=== PATIENT | male | born 1985 | race Two or more races ===

== ENCOUNTER 2024-11-15 00:42 | Inpatient (IN) | payer OTHER ==
[~2024-11-15] VITALS: Ht 170.2 cm; Wt 104.3 kg
[2024-11-15] VITALS (9 sets, daily range): BP systolic 114–139; BP diastolic 68–95; PULSE 60–81; RESP 14–20; TEMP 97.6–98.1; O2SAT 92–100
--- NOTE | 2024-11-15 00:50 | ED.PDOC ---
HPI Comments 39-year-old male presents to ED chief complaint chest pain. Patient notes substernal chest pain with radiation into his left arm describes a sharp shooting and pressure type pain across left and right chest into left arm rates pain 5-6/10. Patient reports no other related symptoms. Notes he was driving his vehicle when pain started. He was so reports history of hypertension however does not take any medications. Blood pressure in triage was 171/122. Patient also states he had this pain in the past he was cleared by his PCP how it was never referred to cardiology for further workup or stress test. Denies nausea, vomiting, dizziness, shortness a breath, difficulty breathing, fever, chills, recent travel, or drug use. Time Seen by MD: 00:47 Reviewed Notes: Nurses Notes, Medications, Allergies Allergies: Coded Allergies: NO KNOWN ALLERGIES (Unverified , 11/15/24) Past Medical History PAST MEDICAL HISTORY: HTN Surgical History: Denies all surgeries Family History Family History: Unknown Social History Smoker: Non-Smoker Alcohol: Denies ETOH Use Drugs: Denies Drug Use Constitutional: denies: chills, diaphoresis, fatigue, fever, malaise, sweats, weakness, others EENTM: denies: blurred vision, double vision, ear bleeding, ear discharge, ear drainage, ear pain, ear ringing, eye pain, eye redness, hearing loss, mouth pain, mouth swelling, nasal discharge, nose bleeding, nose congestion, nose pain, photophobia, tearing, throat pain, throat swelling, voice changes, others Respiratory: denies: cough, hemoptysis, orthopnea, SOB at rest, shortness of breath, SOB with excertion, stridor, wheezing, others Cardiovascular: reports: chest pain; denies: dizzy spells, diaphoresis, Dyspnea on exertion, edema, irregular heart beat, left arm pain, lightheadedness, palpitations, PND, syncope, others Gastrointestinal: denies: abdomen distended, abdominal pain, blood streaked bowels, constipated, diarrhea, dysphagia, difficulty swallowing, hematemesis, melena, nausea, poor appetite, poor fluid intake, rectal bleeding, rectal pain, vomiting, others Genitourinary: denies: burning, dysuria, flank pain, frequency, hematuria, incontinence, penile discharge, penile sore, pain, testicle pain, testicle swelling, urgency, others Neurological: denies: dizziness, fainting, headache, left sided numbness, left sided weakness, numbness, paresthesia, pre-existing deficit, right sided numbness, right sided weakness, seizure, speech problems, tingling, tremors, weakness, others Musculoskeletal: denies: back pain, gout, joint pain, joint swelling, muscle pain, muscle stiffness, neck pain, others Integumetry: denies: bruises, change in color, change in hair/nails, dryness, laceration, lesions, lumps, rash, wounds, others Allergic/Immunocompromised: denies: Difficulty Healing, Frequent Infections, Hi ves, Itching, others Hematologic/Lymphatic: denies: anemia, blood clots, easy bleeding, easy bruising, swollen glands, others Endocrine: denies: excessive hunger, excessive sweating, excessive thirst, excessive urination, flushing, intolerance to cold, intolerance to heat, unexplained weight gain, unexplained weight loss, others Psychiatric: denies: anxiety, bipolar disorder, depression, hopeless, panic disorder, schizophrenia, sleepless, suicidal, others Physical Exam General Appearance: No Apparent Distress, Normal HEENT: Normal ENT Inspection, Pharynx Normal, TMs Normal Neck: Full Range of Motion, Non-Tender Respiratory: Chest Non-Tender, Lungs Clear, No Respiratory Distress, Normal Breath Sounds Cardiovascular: No Edema, No JVD, No Murmur, No Gallop, Normal Peripheral Pulses, Regular Rate/Rhythm Breast Exam: Deferred Gastrointestinal: No Organomegaly, Non Tender, No Pulsatile Mass, Normal Bowel Sounds, Soft Genitalia: Deferred Pelvic: Deferred Rectal: Deferred Extremities: No calf tenderness, Normal capillary refill, Normal inspection, Normal range of motion, Non-tender, No pedal edema Musculoskeletal : Apperance: Normal Neurologic: Alert, 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 Was a procedure done?: No CP Differential Dx Differential Diagnosis: Anxiety / Panic Attack, Electrolyte Disorder, GA, Pulmonary Embolus Differential Diagnosis: CHF, HTN Essential Differential Diagnosis: Esophageal reflux/spasm, Gastritis X-Ray, Labs, Meds, VS Vital Signs Date Time Temp Pulse Resp B/P (MAP) Pulse Ox O2 Delivery O2 Flow Rate FiO2 11/15/24 01:21 149/103 11/15/24 00:42 100.1 82 20 171/122 (138) 97 100.1 Lab Test 11/15/24 01:41 11/15/24 00:46 Range/Units Troponin I High Sensitivity 5 5 </=54 ng/L White Blood Count 9.3 4.4-10.8 10^3/uL Red Blood Count 5.57 4.5-5.90 10^6/uL Hemoglobin 16.1 13.5-17.5 g/dL Hematocrit 46.5 41.0-53.0 % Mean Corpuscular Volume 83.5 80.0-100.0 fL Mean Corpuscular Hemoglobin 28.9 28.0-32.0 pg Mean Corpuscular Hemoglobin Concent 34.6 32.0-36.0 g/dL Red Cell Distribution Width 12.6 11.8-14.3 % Platelet Count 193 140-450 10^3/uL Mean Platelet Volume 10.3 6.9-10.8 fL Neutrophils (%) (Auto) 51.1 37.0-80.0 % Lymphocytes (%) (Auto) 33.6 10.0-50.0 % Monocytes (%) (Auto) 10.3 0.0-12.0 % Eosinophils (%) (Auto) 4.4 0.0-7.0 % Basophils (%) (Auto) 0.6 0.0-2.0 % Neutrophils # (Auto) 4.7 1.6-8.6 10 ^3/uL Lymphocytes # (Auto) 3.1 0.4-5.4 10 ^3/uL Monocytes # (Auto) 1.0 0-1.3 10 ^3/uL Eosinophils # (Auto) 0.4 0-0.8 10 ^3/uL Basophils # (Auto) 0.1 0-0.2 10 ^3/uL Nucleated Red Blood Cells 0.1 % Sodium Level 142 136-145 mmol/L Potassium Level 3.8 3.5-5.1 mmol/L Chloride Level 111 H 98-107 mmol/L Carbon Dioxide Level 25 20-31 mmol/L Anion Gap 6 5-15 Blood Urea Nitrogen 20 9-23 mg/dL Creatinine 1.16 0.700-1.30 mg/dL Glomerular Filtration Rate Calc 82 >90 mL/min BUN/Creatinine Ratio 17.2 10.0-20.0 Serum Glucose 85 74-106 mg/dL Calcium Level 9.7 8.7-10.4 mg/dL Total Bilirubin 0.6 0.2-1.0 mg/dL Aspartate Amino Transferase (AST) 27 13-40 U/L Alanine Aminotransferase (ALT) 34 7-40 U/L Alkaline Phosphatase 117 H 46-116 U/L Total Protein 7.0 5.7-8.2 g/dL Albumin 4.3 3.2-4.8 g/dL X-Ray, Labs, Meds, VS Comment Chest x-ray shows no cardiopulmonary findings. CBC, CMP within normal limits, negative troponin x2. EKG shows no ectopy or ST elevation. Patient continues with substernal chest pain radiating into his left arm. Patient was placed for admission for cardiology consult and stress test in the morning. Time of 1ST Reevaluation: 00:50 Reevaluation 1ST: Unchanged Time of 2ND Reevaluation: 02:39 Reevaluation 2ND: Unchanged Patient Education/Counseling: Diagnosis, Treatment, Prognosis, Need For Follow Up Family Education/Counseling: Prognosis, Need For Follow Up Departure 1 Departure Time of Disposition: 02:35 Impression: Primary Impression: Chest pain Qualified Codes: R07.9 - Chest pain, unspecified Disposition: 09 ADMITTED INPATIENT Condition: Stable Discharged With: Spouse Critical Care Note Critical Care Time?: No Stability Stability form required: No Heart Score Heart Score: Heart Score Response (Comments) Value History Slightly Suspicious 0 EKG Normal 0 Age <45 0 Risk Factors 1 or 2 risk factors 1 Troponin Normal limit 0 Total 1 STACIA MUNIZ November 15, 2024 00:50
[2024-11-15 01:03] LABS: Basophils # (auto) 0.1 10 ^3/uL (0-0.2); Basophils % (auto) 0.6 % (0.0-2.0); Eosinophils # (auto) 0.4 10 ^3/uL (0-0.8); Eosinophils % (auto) 4.4 % (0.0-7.0); Hematocrit 46.5 % (41.0-53.0); Hemoglobin 16.1 g/dL (13.5-17.5); Lymphocytes # (auto) 3.1 10 ^3/uL (0.4-5.4); Lymphocytes % (auto) 33.6 % (10.0-50.0); Mean Corpuscular Hemoglobin 28.9 pg (28.0-32.0); Mean Corpuscular Hgb Conc. 34.6 g/dL (32.0-36.0); Mean Corpuscular Volume 83.5 fL (80.0-100.0); Monocytes % (auto) 10.3 % (0.0-12.0); Neutrophils # (auto) 4.7 10 ^3/uL (1.6-8.6); Neutrophils % (auto) 51.1 % (37.0-80.0); Nucleated Red Blood Cells % 0.1 %; Platelet Count (auto) 193 10^3/uL (140-450); Red Blood Cells 5.57 10^6/uL (4.5-5.90); Red Cell Distribution Width 12.6 % (11.8-14.3); White Blood Cell 9.3 10^3/uL (4.4-10.8)
[2024-11-15 01:21] LABS: Alanine Aminotransferase 34 U/L (7-40); Albumin 4.3 g/dL (3.2-4.8); Anion Gap 6 (5-15); Aspartate Aminotransferase 27 U/L (13-40); BUN/Creatinine Ratio 17.2 (10.0-20.0); Bilirubin, Total 0.6 mg/dL (0.2-1.0); Blood Urea Nitrogen 20 mg/dL (9-23); Calcium 9.7 mg/dL (8.7-10.4); Carbon Dioxide 25 mmol/L (20-31); Glucose 85 mg/dL (74-106); Potassium 3.8 mmol/L (3.5-5.1); Sodium 142 mmol/L (136-145)
[2024-11-15] MEDS: cloNIDine HCL 0.1 MG TAB PO ONE (01:21)
--- NOTE | 2024-11-15 01:25 | DVH ---
EXAM: XY CHEST TWO VIEWS ROUTINE CLINICAL HISTORY: CHEST PAIN TECHNIQUE: Frontal and lateral views of the chest WID: COMPARISON: None FINDINGS: Lines and tubes: None Chest: The heart size and pulmonary vasculature is within normal limits. No pleural effusion, pneumothorax, or consolidation. The osseous structures are grossly intact. IMPRESSION: No acute cardiopulmonary abnormality.
[2024-11-15 01:30] LABS: Alkaline Phosphatase 117 U/L (46-116); Chloride 111 mmol/L (98-107)
[2024-11-15] MEDS: MORPHINE SULFATE INJ 2 MG/ml SYRG IV ONE (03:15)
[2024-11-15] MEDS: ASPirin 325 MG TAB PO ONE (03:50)
[2024-11-15] MEDS ORDERED: ACETAMINOPHEN 325 MG TAB PO PRN (04:30)
[2024-11-15] MEDS ORDERED: MORPHINE SULFATE INJ 2 MG/ml SYRG IV PRN (04:30)
[2024-11-15] MEDS ORDERED: ONDANSETRON HCL 4 MG/2 ML VIAL IV PRN (04:30)
--- NOTE | 2024-11-15 04:37 | DVHHPRES ---
History of Present Illness Resident Creating Document: DARLENE ALCARAZ RESIDENT History of Present Illness Patient is a 39-year-old male with past medical history of hypertension comes in due to chest pain. According to the patient chest pain started yesterday 9:00 p.m. when he was driving, describes the pain as pressure-like, 6/10 in intensity, worsened with eating and relieved by aspirin and radiation to the left shoulder. He notes having similar symptoms 2 months ago. Pain is also associated with blurry vision. EKG showed nonspecific T-wave changes, serial troponins were 5, 5, 5. Review of systems was all negative. On physical exam patient was noted to have dry mucous membranes and some mild midepigastric tenderness to palpation with no reproducibility of the chest pain on palpation. Patient was admitted to the hospital and Cardiology was consulted. Past Medical History Hypertension Past Surgical History Denies Smoke: No ALCOHOL: none Drugs: None Review of Systems Constitutional: No: Fever, Chills, Sweats, Weakness, Malaise, Other Eyes: No: Pain, Vision change, Conjunctivae inflammation, Eyelid inflammation, Other, Redness ENT: No: Ear pain, Ear discharge, Nose pain, Nose discharge, Nose congestion, Mouth pain, Mouth swelling, Throat pain, Throat swelling, Other Respiratory: No: Cough, Dry, Shortness of breath, SOB with excertion, Wheezing, Hemoptysis, Pleuritic Pain, Sputum, Wheezing, Other Cardiovascular: No: Chest Pain, Palpitations, Orthopnea, Paroxysmal Noc. Dyspnea, Edema, Lt Headedness, Other Gastrointestinal: No: Nausea, Vomiting, Abdominal Pain, Diarrhea, Constipation, Melena, Hematochezia, Other Genitourinary: No Dysuria, No Frequency, No Incontinence, No Hematuria, No Retention, No Other Musculoskeletal: No: other, neck pain, shoulder pain, arm pain, back pain, hand pain, leg pain, foot pain Skin: No: Rash, Lesions, Jaundice, Bruising, Other Neurological: No: Weakness, Numbness, Incoordination, Change in speech, Confusion, Seizures, Other Allergies: Coded Allergies: NO KNOWN ALLERGIES (Unverified , 11/15/24) Exam Vital Signs Vital Signs Date Time Temp Pulse Resp B/P (MAP) Pulse Ox O2 Delivery O2 Flow Rate FiO2 11/15/24 04:14 62 15 96 Room Air* 0 21 21 11/15/24 04:13 98.3 138/93 (108) 98.3 General Appearance: Alert, Oriented X3, Cooperative, No acute distress HEENT: Atraumatic, PERRLA, EOMI, Other (Dry mucous membranes) Respiratory: Clear to auscultation, Normal air movement Cardiovascular: Regular rate, Normal S1, Normal S2, No murmurs Abdominal: Normal bowel sounds, Soft, Other (Very mild midepigastric tenderness to palpation) Extremities: No edema Skin: No significant lesion Neuro: Normal gait, Normal speech, Strength at 5/5 X4 ext, Sensation intact Psych/Mental Status: Mental status NL, Mood NL Labs/Xrays Labs Test 11/15/24 03:33 11/15/24 00:46 Range/Units Troponin I High Sensitivity 5 </=54 ng/L White Blood Count 9.3 4.4-10.8 10^3/uL Red Blood Count 5.57 4.5-5.90 10^6/uL Hemoglobin 16.1 13.5-17.5 g/dL Hematocrit 46.5 41.0-53.0 % Mean Corpuscular Volume 83.5 80.0-100.0 fL Mean Corpuscular Hemoglobin 28.9 28.0-32.0 pg Mean Corpuscular Hemoglobin Concent 34.6 32.0-36.0 g/dL Red Cell Distribution Width 12.6 11.8-14.3 % Platelet Count 193 140-450 10^3/uL Mean Platelet Volume 10.3 6.9-10.8 fL Neutrophils (%) (Auto) 51.1 37.0-80.0 % Lymphocytes (%) (Auto) 33.6 10.0-50.0 % Monocytes (%) (Auto) 10.3 0.0-12.0 % Eosinophils (%) (Auto) 4.4 0.0-7.0 % Basophils (%) (Auto) 0.6 0.0-2.0 % Neutrophils # (Auto) 4.7 1.6-8.6 10 ^3/uL Lymphocytes # (Auto) 3.1 0.4-5.4 10 ^3/uL Monocytes # (Auto) 1.0 0-1.3 10 ^3/uL Eosinophils # (Auto) 0.4 0-0.8 10 ^3/uL Basophils # (Auto) 0.1 0-0.2 10 ^3/uL Nucleated Red Blood Cells 0.1 % Sodium Level 142 136-145 mmol/L Potassium Level 3.8 3.5-5.1 mmol/L Chloride Level 111 H 98-107 mmol/L Carbon Dioxide Level 25 20-31 mmol/L Anion Gap 6 5-15 Blood Urea Nitrogen 20 9-23 mg/dL Creatinine 1.16 0.700-1.30 mg/dL Glomerular Filtration Rate Calc 82 >90 mL/min BUN/Creatinine Ratio 17.2 10.0-20.0 Serum Glucose 85 74-106 mg/dL Calcium Level 9.7 8.7-10.4 mg/dL Total Bilirubin 0.6 0.2-1.0 mg/dL Aspartate Amino Transferase (AST) 27 13-40 U/L Alanine Aminotransferase (ALT) 34 7-40 U/L Alkaline Phosphatase 117 H 46-116 U/L Total Protein 7.0 5.7-8.2 g/dL Albumin 4.3 3.2-4.8 g/dL Assessment/Plan Assessment/Plan Chest pain, rule out ACS - aspirin 325 mg once - EKG shows nonspecific T-wave changes - serial troponins 5, 5,5 - atorvastatin 40 mg - ordered BNP - D-dimer, PT PTT - CXR - morphine as needed for pain - consulted cardiology Hypertension Hypertensive heart disease - resumed home medication lisinopril - ordered echocardiogram Obesity - counseled Goals of care: Full code, discussed for >16 minutes on 11/15/24 Plan discussed with patient Plan discussed with Dr. Cool Plan discussed with: Patient, Other (RN) Date of Service: November 15, 2024 Billing Provider: BERT COOL MD Common Visit Codes: [id number] INP/OBS CARE (HIGH) DARLENE ALCARAZ RESIDENT November 15, 2024 04:37
[2024-11-15 05:05] LABS: Partial Thromboplastin Time 26.8 SEC (24.5-34.5); Prothrombin Time 10.6 sec (9.3-11.8)
[2024-11-15 05:17] LABS: Basophils # (auto) 0.1 10 ^3/uL (0-0.2); Basophils % (auto) 0.7 % (0.0-2.0); Eosinophils # (auto) 0.3 10 ^3/uL (0-0.8); Eosinophils % (auto) 3.9 % (0.0-7.0); Hematocrit 46.4 % (41.0-53.0); Hemoglobin 15.8 g/dL (13.5-17.5); Lymphocytes % (auto) 24.6 % (10.0-50.0); Mean Corpuscular Hemoglobin 28.5 pg (28.0-32.0); Mean Corpuscular Volume 83.8 fL (80.0-100.0); Monocytes # (auto) 0.7 10 ^3/uL (0-1.3); Monocytes % (auto) 8.4 % (0.0-12.0); Neutrophils # (auto) 5.1 10 ^3/uL (1.6-8.6); Neutrophils % (auto) 62.4 % (37.0-80.0); Nucleated Red Blood Cells % 0.1 %; Platelet Count (auto) 200 10^3/uL (140-450); Red Blood Cells 5.53 10^6/uL (4.5-5.90); Red Cell Distribution Width 12.6 % (11.8-14.3); White Blood Cell 8.1 10^3/uL (4.4-10.8)
[2024-11-15] MEDS: LISINOPRIL 20 MG TAB PO ONE (05:23)
[2024-11-15] MEDS: ATORVASTATIN 20 MG TAB PO ONE (05:23)
[2024-11-15 05:51] LABS: Alanine Aminotransferase 33 U/L (7-40); Albumin 4.2 g/dL (3.2-4.8); Alkaline Phosphatase 111 U/L (46-116); Anion Gap 9 (5-15); Aspartate Aminotransferase 28 U/L (13-40); BUN/Creatinine Ratio 18.9 (10.0-20.0); Bilirubin, Total 0.5 mg/dL (0.2-1.0); Blood Urea Nitrogen 21 mg/dL (9-23); Calcium 9.8 mg/dL (8.7-10.4); Carbon Dioxide 20 mmol/L (20-31); Potassium 4.4 mmol/L (3.5-5.1); Sodium 142 mmol/L (136-145); Total Protein 6.9 g/dL (5.7-8.2)
[2024-11-15 05:58] LABS: Chloride 113 mmol/L (98-107); Glucose 109 mg/dL (74-106)
[2024-11-15 07:13] LABS: Triglycerides 258 mg/dL (< 150)
[2024-11-15 07:16] LABS: Cholesterol 229 mg/dL (< 200); HDL Cholesterol 35 mg/dL (40-59); LDL Cholesterol 157 mg/dL (< 100)
[2024-11-15 09:26] LABS: Urine Bacteria None Seen /hpf (None Seen)
--- NOTE | 2024-11-15 09:39 | DVHINCON2 ---
Date Seen: November 15, 2024 Referring Physician MD Wu resident Reason for Consultation Chest pain, rule out ACS History of Present Illness This is a 39-year-old male patient who presents to emergency room with chief complaint of chest pain. The patient reports that the pain began at approxim ately 9:00 p.m. last night. He describes the pain as unprovoked, intermittent, pressure-like in nature, and right-sided without radiation. He denies any associated symptoms. The patient reports he has been experiencing this pressure-like chest pain for approximately two years now. He denies seeking any medical attention in the past. Initial twelve lead electrocardiogram reveals normal sinus rhythm with nonspecific T-wave inversions to multiple leads (III, aVF, V1, V3, V4). Serial troponin levels have been negative. Significant past medical history includes hypertension and obesity. Of note, patient came in with blood pressure reaching as high as 171/122. At time of assessment, the patient's blood pressure now 110/76, patient still complains of right-sided chest pressure. Past Medical History Past medical history reviewed. No other significant than mentioned above. Past Surgical History Denies any previous surgeries Family History Family history reviewed. Social History Denies the use of tobacco, alcohol or illicit drugs. Allergies: Coded Allergies: NO KNOWN ALLERGIES (Unverified , 11/15/24) Home Meds Reported Medications Lisinopril (Lisinopril) 20 Mg Tab, 1 TAB PO DAILY 11/15/24 Home Meds Home medications reviewed. Current Medications Current Medications Medications (Trade) Dose Ordered Sig/Yariel Route PRN Reason Start Time Stop Time Status Last Admin Acetaminophen (Tylenol Tablet) 325 mg Q4HP PRN PO MILD PAIN (1-3 PAIN SCALE) 11/15/24 04:30 Ondansetron HCl (Zofran) 4 mg Q4HP PRN IV NAUSEA / VOMITING 11/15/24 04:30 Morphine Sulfate 2 mg Q30M PRN IV FOR CHEST PAIN 11/15/24 04:30 Lisinopril (Zestril Tablet) 20 mg DAILY PO 11/15/24 10:00 Atorvastatin Calcium (Lipitor) 40 mg HS PO 11/15/24 22:00 Aspirin 81 mg DAILY PO 11/15/24 10:00 Enoxaparin Sodium (Lovenox) 40 mg DAILY SC 11/15/24 10:00 Review of Systems Constitutional: No symptom reported Ears, Nose, & Throat: No symptom reported Eyes: No symptom reported Neurological: No symptoms reported Pulmonary/Respiratory: No symptoms reported Cardiovascular: Chest pain Gastrointestinal: No symptom reported Genitourinary: No symptom reported Musculoskeletal: No symptom reported Skin: No symptom reported Psychiatric: No symptom reported Endocrine: No symptom reported Hematologic/Lymphatic: No symptom reported Vital Signs Vital Signs Date Time Temp Pulse Resp B/P (MAP) Pulse Ox O2 Delivery O2 Flow Rate FiO2 11/15/24 08:31 97.9 66 14 110/76 (87) 96 97.9 11/15/24 08:00 Room Air* 0 21 Physical Exam General Appearance: Cooperative. Morbidly obese Pulmonary/Respiratory: Clear, bilateral breaths sounds. Cardiovascular/Chest: Regular rate and rhythm. Peripheral Pulses: 2+ Radial (R). 2+ Radial (L). 2+ Pedal (R). 2+ Pedal (L) Abdominal Exam: Normal bowel sounds. Ankle Exam: Negative ankle edema Lower extremities: Negative lower extremity edema Neuro/Mental Status: A/OX4, coherent. Thoughts/Psych: Normal thought pattern. Appropriate mood and affect. Good judgment and insight. Appearance: No acute distress. Skin Exam: Normal inspection. Normal color. Warm and dry. Labs/Diagnostic Data Labs Test 11/15/24 09:14 11/15/24 04:45 11/15/24 03:33 11/15/24 00:46 Range/Units White Blood Count 8.1 4.4-10.8 10^3/uL Red Blood Count 5.53 4.5-5.90 10^6/uL Hemoglobin 15.8 13.5-17.5 g/dL Hematocrit 46.4 41.0-53.0 % Mean Corpuscular Volume 83.8 80.0-100.0 fL Mean Corpuscular Hemoglobin 28.5 28.0-32.0 pg Mean Corpuscular Hemoglobin Concent 34.0 32.0-36.0 g/dL Red Cell Distribution Width 12.6 11.8-14.3 % Platelet Count 200 140-450 10^3/uL Mean Platelet Volume 10.5 6.9-10.8 fL Neutrophils (%) (Auto) 62.4 37.0-80.0 % Lymphocytes (%) (Auto) 24.6 10.0-50.0 % Monocytes (%) (Auto) 8.4 0.0-12.0 % Eosinophils (%) (Auto) 3.9 0.0-7.0 % Basophils (%) (Auto) 0.7 0.0-2.0 % Neutrophils # (Auto) 5.1 1.6-8.6 10 ^3/uL Lymphocytes # (Auto) 2.0 0.4-5.4 10 ^3/uL Monocytes # (Auto) 0.7 0-1.3 10 ^3/uL Eosinophils # (Auto) 0.3 0-0.8 10 ^3/uL Basophils # (Auto) 0.1 0-0.2 10 ^3/uL Nucleated Red Blood Cells 0.1 % Hemoglobin A1c 5.2 <5.7 % A1C Sodium Level 142 136-145 mmol/L Potassium Level 4.4 3.5-5.1 mmol/L Chloride Level 113 H 98-107 mmol/L Carbon Dioxide Level 20 20-31 mmol/L Anion Gap 9 5-15 Blood Urea Nitrogen 21 9-23 mg/dL Creatinine 1.11 0.700-1.30 mg/dL Glomerular Filtration Rate Calc 87 >90 mL/min BUN/Creatinine Ratio 18.9 10.0-20.0 Serum Glucose 109 H 74-106 mg/dL Calcium Level 9.8 8.7-10.4 mg/dL Magnesium Level 2.0 1.6-2.6 mg/dL Total Bilirubin 0.5 0.2-1.0 mg/dL Aspartate Amino Transferase (AST) 28 13-40 U/L Alanine Aminotransferase (ALT) 33 7-40 U/L Alkaline Phosphatase 111 46-116 U/L Troponin I High Sensitivity 5 </=54 ng/L Total Protein 6.9 5.7-8.2 g/dL Albumin 4.2 3.2-4.8 g/dL Triglycerides Level 258 H < 150 mg/dL Cholesterol Level 229 H < 200 mg/dL LDL Cholesterol 157 H < 100 mg/dL HDL Cholesterol 35 L 40-59 mg/dL Thyroid Stimulating Hormone (TSH) 1.88 0.55-4.78 uIU/mL Prothrombin Time 10.6 9.3-11.8 sec Prothrombin Time INR 1.00 0.9-1.15 Activated Partial Thromboplast Time 26.8 24.5-34.5 SEC D-Dimer, Quantitative 0.21 0.0-0.49 mg/L FEU B-Type Natriuretic Peptide 28.91 0-100 pg/mL Assessment Chest pain, rule out coronary ischemia Hypertensive urgency Dyslipidemia, newly diagnosed Morbid obesity Plan/Recommendation We will continue with the following plan/recommendations (Dr. Nunez): * Echocardiogram to evaluate cardiac function * Chest pain protocol * HEART score: 2 points (low score) * Aggressive blood pressure control * Initiate lipid-lowering agent * Close Cardiac surveillance * Treadmill stress test Thank you for allowing us to care for this patient. Please call with any questions or concerns. Critical care time spent: 44 minutes This medical document was created using an electronic medical record system with voice recognition software and computerized dictation system. Although this document has been carefully reviewed, there might still be some phonetic and typographical errors. Occasional wrong-word or ``sound-alike substitutions may have occurred due to the inherent limitations of voice recognition software. These areas are purely typographical due to imperfections of the software programs and do not reflect any compromise in the patient's medical care. Please read the chart carefully and recognize, using context, where these substitutions have occurred. Plan discussed with: Patient NYHA Physical activity limitations: NA Date of Service: November 15, 2024 Billing Provider: AILEEN LINDQUIST Cardiology Common Codes: [id number] INP/OBS CARE (High) Cardiology Consultation Codes: [id number] CONSULT <45MIN AILEEN LINDQUIST November 15, 2024 09:39
[2024-11-15 09:42] LABS: Urine Blood 1+ /uL (Negative); Urine Clarity Clear (Clear); Urine Color Light-Yellow (Yellow); Urine Hyaline Cast FEW /lpf (0 - 2); Urine Protein, UAD 2+ (Negative); Urine Specific Gravity 1.018 (1.001-1.035); Urine Squamous Epithelial Cell FEW /hpf (<5); Urine Urobilinogen Normal (Negative); Urine WBC 1 /HPF (0-3); Urine pH 5.5 (5.0-9.0)
[2024-11-15 09:45] LABS: Amphetamine Screen, Urine Neg (NEGATIVE); Barbiturate Scree,Urine Neg (NEGATIVE); Benzodiazephine Screen, Urine Neg (NEGATIVE); Cocaine Screen, Urine Neg (NEGATIVE); Opiate Scree,Urine Neg (NEGATIVE)
[2024-11-15 09:46] LABS: Phencyclidine Screen, Urine Neg (NEGATIVE)
[2024-11-15 09:47] LABS: Cannabinoid Screen, Urine Neg (NEGATIVE)
[2024-11-15] MEDS ORDERED: LISI20TA56 PO (09:57)
[2024-11-15] MEDS: LISINOPRIL 20 MG TAB PO SCH (10:00)
--- NOTE | 2024-11-15 11:21 | DVHCARD ---
Cardiology Stress Test [place] Treadmill Stress Test [place] Referring MD: AZUCENA Lopez Protocol: Noe (without cardiolite) Reason for referral: Chest Pain Target heart Rate:@85%: 153 Percent MPHR: 181 METS: 10.4 Resting Heart rate: 73 Resting Blood Pressure: 139/95 Exercise Heart Rate: 144 Exercise Blood Pressure: 204/108 Baseline EKG: Normal sinus rhythm nonspecific T-wave inversion to inferolateral lead Stress EKG: Sinus tachycardia Functional Capacity: Good Normal Heart Rate Response: Adequate Blood Pressure Response: Hypertensive Clinical response: Non-ischemic Arrhythmia?: No Cardiolite Injected?: No ST-T Changes: Non/Minimal Probability of Inducible Ische: Low Date of Service: November 15, 2024 Billing Provider: AILEEN LOPEZ Cardiology Common Codes: PROCEDURE ONLY Treadmill w/o Cardiolite: [id number], INTERP, RPT AILEEN LOPEZ November 15, 2024 11:21
[2024-11-15] MEDS: ASPirin 81 mg TAB PO SCH (13:02)
[2024-11-15] MEDS: ENOXAPARIN SOD 40 MG/0.4 ML SYRINGE SC SCH (13:03)
--- NOTE | 2024-11-15 18:23 | DVHPNRES ---
Progress Note Date Seen: November 15, 2024 Resident Creating Document: YOAN COSTA RESIDENT Medical Necessity Reason Pt with a Central, PICC or Fol: No Subjective Review of Systems History of Present Illness Patient is a 39-year-old male with past medical history of hypertension comes in due to chest pain. According to the patient chest pain started yesterday 9:00 p.m. when he was driving, describes the pain as pressure-like, 6/10 in intensity, worsened with eating and relieved by aspirin and radiation to the left shoulder. He notes having similar symptoms 2 months ago. Pain is also associated with blurry vision. EKG showed nonspecific T-wave changes, serial troponins were 5, 5, 5. Review of systems was all negative. On physical exam patient was noted to have dry mucous membranes and some mild midepigastric tenderness to palpation with no reproducibility of the chest pain on palpation. Patient was admitted to the hospital and Cardiology was consulted. Past Medical History Hypertension Past Surgical History Denies Smoke: No ALCOHOL: none Drugs: None Patient seen and examined at bedside; staff helped translation; French-speaking patient Complaining of mild on and off substernal chest pain, pressure-like, sometimes sharp in nature, radiating to shoulder. Patient has risk factor of hypertension, cardiology has been consulted. For ruling out ACS ROS: Eyes: No Pain, No Vision change, No Conjunctivae inflammation, No Eyelid inflammation, No Other, No Redness ENT: No Ear pain, No Ear discharge, No Nose pain, No Nose discharge, No Nose congestion, No Mouth pain, No Mouth swelling, No Throat pain, No Throat swelling, No Other Cardiovascular: Chest Pain, No Palpitations, No Orthopnea, No Paroxysmal Noc. Dyspnea, No Edema, No Lt Headedness, No Other Respiratory: No Cough, No Dry, No Shortness of breath, No SOB with exertion: No Wheezing, No Hemoptysis, No Pleuritic Pain, No Sputum, No Other Gastrointestinal: No Nausea, No Vomiting, No Abdominal Pain, No Diarrhea, No Constipation, No Melena, No Hematochezia, No Other Genitourinary: No Dysuria, No Frequency, No Incontinence, No Hematuria, No Retention, No Other Musculoskeletal: No other, No neck pain, No shoulder pain, No arm pain, No back pain, No hand pain, No leg pain, No foot pain Skin: No Rash, No Lesions, No Jaundice, No Bruising, No Other Objective vital signs Vital Sign Date Time Temp Pulse Resp B/P (MAP) Pulse Ox O2 Delivery O2 Flow Rate FiO2 11/15/24 17:04 97.6 65 14 116/75 (89) 93 97.6 11/15/24 09:33 Room Air* 0 21 medications Current Medications Medications Dose Ordered Sig/Yariel Route Start Time Stop Time Status Last Admin Dose Admin Acetaminophen 325 mg Q4HP PRN PO 11/15/24 04:30 Ondansetron HCl 4 mg Q4HP PRN IV 11/15/24 04:30 Morphine Sulfate 2 mg Q30M PRN IV 11/15/24 04:30 Lisinopril 20 mg DAILY PO 11/15/24 10:00 Atorvastatin Calcium 40 mg HS PO 11/15/24 22:00 Aspirin 81 mg DAILY PO 11/15/24 10:00 11/15/24 13:02 81 MG Enoxaparin Sodium 40 mg DAILY SC 11/15/24 10:00 11/15/24 13:03 40 MG Examination General Appearance: Cooperative. Well developed. Well nourished. NAD Head Exam: Normal inspection Neck Exam: Normal inspection. Non-tender. Normal alignment Pulmonary/Respiratory: Chest non-tender. Clear bilateral breath sounds Cardiovascular/Chest: Regular rate and rhythm. No murmurs. No JVD. Peripheral Pulses: 2+ Radial (R). 2+ Radial (L). 2+ Pedal (R). 2+ Pedal (L) Abdominal Exam: Normal bowel sounds. Soft. Substernal tenderness on palpation, No hepatosplenomegaly. No masses Ankle Exam: Negative ankle edema Lower extremities: Negative lower extremity edema Neuro/Mental Status: A&O x4. Coherent Thoughts/Psych: Normal thought pattern. Appropriate mood and affect. Good judgement and insight Appearance: In no acute distress Skin Exam: Normal inspection. Normal color. Warm. Dry laboratory and microbiology Laboratory Tests 11/15/24 04:45 11/15/24 03:33 Test 11/15/24 03:33 Range/Units Serum Glucose 109 H 74-106 mg/dL Labs and/or images reviewed: Labs reviewed by me, Image(s) reviewed by me Problem List/Assessment/Plan Problem List/Assessment/Plan Chest pain; rule out ACS Hypertensive heart disease Hypertensive urgency Dyslipidemia Morbid obesity BMI 35.9 kg/m2 Plan/recommendation -continue with aspirin and atorvastatin, lisinopril. -cardiology consultation has been done to rule out ACS -echocardiogram to rule out structural and functional abnormality of heart -newly diagnosed dyslipidemia: Continue atorvastatin 40 mg p.o. daily -as per Cardiology plan for treadmill stress test. Continue telemetry monitoring. -EKG: Sinus rhythm with nonspecific T-wave changes. -counseled on lifestyle modification such as regular exercise, healthy diet options, dash diet, restrict sodium intake less than 2 g per day. Goals of care discussed for 20 minutes, full code status. Plan discussed with Dr. Smith Plan discussed with: Patient, Other (RN) Addendum Addendum Addendum I was physically present for the roca portions of the service provided to patient by THE RESIDENT. I have reviewed the documentation, discussed the case with resident and agree with the resident's documentation except as noted. Also the patient's clinical case was discussed with the patient's nurse. This medical document was created using an electronic medical record system with computerized dictation system. Although this document has been carefully reviewed, there might still be some phonetic and typographical errors. These areas are purely typographical due to imperfections of the software programs, and do not reflect any compromise in the patient's medical care. Late signature. Date of Service: November 15, 2024 Billing Provider: CLEMENCIA SMITH MD Common Visit Codes: 19240-QMORBODNRZ INP/OBS CARE(HIGH) Secondary Visit Codes: 20202-[id number] CARE PLAN 30 MINUTES (20 minutes) YOAN COSTA RESIDENT November 15, 2024 18:23 CLEMENCIA SMITH MD November 16, 2024 10:13
[2024-11-15] MEDS: ATORVASTATIN 20 MG TAB PO SCH (22:05)
[2024-11-16 05:00] VITALS: BP 113/79; PULSE 65; RESP 20; TEMP 97.6; O2SAT 95
--- NOTE | 2024-11-16 06:53 | ECG ---
[facility] Test Date: 2024-11-15 Test Time: 00:50:03 Pat Name: PAT DEL ROSARIO Department: ER Room: 0297T B Gender: M User Interface Designer: GODFREY : 1985 Requested By: STACIA MUNIZ Order Number: [id number] Reading MD: James Nunez Measurements Intervals [place] Rate: 75 P: 19 MD: 155 QRS: -21 QRSD: 111 T: -27 QT: 404 QTc: 452 Interpretive Statements Sinus rhythm Borderline left axis deviation Nonspecific T abnormalities, diffuse leads Electronically Signed On 11-16-2024 9:17:41 PDT by James Nunez Please click the below link to view image of tracing.
[2024-11-16 08:00] VITALS: PULSE 61; PULSE 63; RESP 18; O2SAT 94
[2024-11-16 08:57] VITALS: BP 101/66; PULSE 63; RESP 18; TEMP 97.7; O2SAT 94
[2024-11-16] MEDS ORDERED: ATOR20TA50 PO (11:27)
[2024-11-16] MEDS ORDERED: LISI20TA56 PO (11:27)
--- NOTE | 2024-11-16 11:35 | DVHDSRES ---
Discharge Summary Date of Admission Resident Creating Document: YONA COSTA RESIDENT November 15, 2024 at 04:27 Date of Discharge: November 16, 2024 Admitting Diagnosis Chest pain Labs/Diagnostic Data: Laboratory Results Test 11/16/24 06:09 11/15/24 09:14 11/15/24 04:45 11/15/24 03:33 POC Glucose 112 mg/dl (70-106) Urine Color Light-yellow (Yellow) Urine Clarity Clear (Clear) Urine pH 5.5 (5.0-9.0) Urine Specific [place] 1.018 (1.001-1.035) Urine Protein 2+ (Negative) Urine Ketones Negative (Negative) Urine Blood 1+ /uL (Negative) Urine Nitrite Negative (Negative) Urine Bilirubin Negative (Negative) Urine Urobilinogen Normal mg/dL (Negative) Urine Leukocyte Esterase Negative /uL (Negative) Urine RBC 1 /hpf (0 - 3) Urine Microscopic WBC 1 /HPF (0-3) Urine Squamous Epithelial Cells Few /hpf (<5) Urine Bacteria None seen /hpf (None Seen) Urine Hyaline Casts Few /lpf (0 - 2) Urine Glucose Normal mg/dL (Normal) Urine Opiates Screen Neg (NEGATIVE) Urine Fentanyl Screen Neg (NEGATIVE) Urine Barbiturates Screen Neg (NEGATIVE) Urine Phencyclidine Screen Neg (NEGATIVE) Urine Amphetamines Screen Neg (NEGATIVE) Urine Benzodiazepines Screen Neg (NEGATIVE) Urine Cocaine Screen Neg (NEGATIVE) Urine Cannabinoids Screen Neg (NEGATIVE) White Blood Count 8.1 10^3/uL (4.4-10.8) Red Blood Count 5.53 10^6/uL (4.5-5.90) Hemoglobin 15.8 g/dL (13.5-17.5) Hematocrit 46.4 % (41.0-53.0) Mean Corpuscular Volume 83.8 fL (80.0-100.0) Mean Corpuscular Hemoglobin 28.5 pg (28.0-32.0) Mean Corpuscular Hemoglobin Concent 34.0 g/dL (32.0-36.0) Red Cell Distribution Width 12.6 % (11.8-14.3) Platelet Count 200 10^3/uL (140-450) Mean Platelet Volume 10.5 fL (6.9-10.8) Neutrophils (%) (Auto) 62.4 % (37.0-80.0) Lymphocytes (%) (Auto) 24.6 % (10.0-50.0) Monocytes (%) (Auto) 8.4 % (0.0-12.0) Eosinophils (%) (Auto) 3.9 % (0.0-7.0) Basophils (%) (Auto) 0.7 % (0.0-2.0) Neutrophils # (Auto) 5.1 10 ^3/uL (1.6-8.6) Lymphocytes # (Auto) 2.0 10 ^3/uL (0.4-5.4) Monocytes # (Auto) 0.7 10 ^3/uL (0-1.3) Eosinophils # (Auto) 0.3 10 ^3/uL (0-0.8) Basophils # (Auto) 0.1 10 ^3/uL (0-0.2) Nucleated Red Blood Cells 0.1 % Hemoglobin A1c 5.2 % A1C (<5.7) Sodium Level 142 mmol/L (136-145) Potassium Level 4.4 mmol/L (3.5-5.1) Chloride Level 113 mmol/L (98-107) Carbon Dioxide Level 20 mmol/L (20-31) Anion Gap 9 (5-15) Blood Urea Nitrogen 21 mg/dL (9-23) Creatinine 1.11 mg/dL (0.700-1.30) Glomerular Filtration Rate Calc 87 mL/min (>90) BUN/Creatinine Ratio 18.9 (10.0-20.0) Serum Glucose 109 mg/dL (74-106) Calcium Level 9.8 mg/dL (8.7-10.4) Magnesium Level 2.0 mg/dL (1.6-2.6) Total Bilirubin 0.5 mg/dL (0.2-1.0) Aspartate Amino Transferase (AST) 28 U/L (13-40) Alanine Aminotransferase (ALT) 33 U/L (7-40) Alkaline Phosphatase 111 U/L (46-116) Troponin I High Sensitivity 5 ng/L (</=54) Total Protein 6.9 g/dL (5.7-8.2) Albumin 4.2 g/dL (3.2-4.8) Triglycerides Level 258 mg/dL (< 150) Cholesterol Level 229 mg/dL (< 200) LDL Cholesterol 157 mg/dL (< 100) HDL Cholesterol 35 mg/dL (40-59) Thyroid Stimulating Hormone (TSH) 1.88 uIU/mL (0.55-4.78) Test 11/15/24 00:46 Prothrombin Time 10.6 sec (9.3-11.8) Prothrombin Time INR 1.00 (0.9-1.15) Activated Partial Thromboplast Time 26.8 SEC (24.5-34.5) D-Dimer, Quantitative 0.21 mg/L FEU (0.0-0.49) B-Type Natriuretic Peptide 28.91 pg/mL (0-100) Other Laboratory Tests 11/15/24 04:45 11/15/24 03:33 Brief Hx & Hospital Course: Patient is 39-year-old male with past medical history of hypertension who came to the hospital with a chief complaint of chest pain, substernal, unprovoked, pressure-like, sometimes sharp in nature, right-sided more than left-sided, as per patient he lift weight and do gym during regular day, never had similar kind of symptoms before prompted visit to the hospital. During further evaluation patient found to have sinus rhythm, nonspecific T-wave changes, negative serial troponin, cardiology consultation was done. Underwent exercise stress test which was negative for acute ischemia. Patient found to have dyslipidemia, advised on aggressive lifestyle modification with regular exercise, hypertension, prescribed with the atorvastatin 40 mg p.o. daily, patient will be discharged home and advised to follow with primary care physician and Cardiology in outpatient setting for follow-up. Patient agreed with the plan, will be discharged home Physical examination on discharge: General Appearance: Cooperative. Well developed. Well nourished. NAD Head Exam: Normal inspection Neck Exam: Normal inspection. Non-tender. Normal alignment Pulmonary/Respiratory: Chest non-tender. Clear bilateral breath sounds Cardiovascular/Chest: Regular rate and rhythm. No murmurs. No JVD. Peripheral Pulses: 2+ Radial (R). 2+ Radial (L). 2+ Pedal (R). 2+ Pedal (L) Abdominal Exam: Normal bowel sounds. Soft. Nontender. No hepatosplenomegaly. No masses Ankle Exam: Negative ankle edema Lower extremities: Negative lower extremity edema Neuro/Mental Status: A&O x4. Coherent Thoughts/Psych: Normal thought pattern. Appropriate mood and affect. Good judgement and insight Appearance: In no acute distress Skin Exam: Normal inspection. Normal color. Warm. Dry Discussed with Dr. Smith Consults/Reason for consult Cardiology for chest pain Condition at Discharge: Stable Final Diagnosis/Problems List Chest pain likely basim pemberton Ruled out ACS Hypertensive heart disease Hypertensive urgency Dyslipidemia Morbid obesity BMI 35.9 kg/m2 Discharge Disposition: Home Discharge Instruct/Medications Diet: Cardiac 2g Na,low cholest Activity: No Restrictions, As Tolerated Follow Up/Referral: -Follow up with PCP/discharge clinic in 1 week Medications: -See prescription Discharge Statement: "Patient was advised to return to the ER or call 911 if any headaches, dizziness, shortness of breath, chest pain, abdominal pain, bleeding, fevers, or worsening of medical condition. Patient was counseled about treatment plan, medications, possible side effects, patientverbalized understanding. All questions were answered to the best of my ability. This discharge took greater then 30 minutes in planning, reviewing documentation, counseling the patient, and discussing with other team members." ASSESSMENT ASSESSMENT Assessment Chest pain likely basim pemberton Ruled out ACS Hypertensive heart disease Hypertensive urgency Dyslipidemia Morbid obesity BMI 35.9 kg/m2 Addendum Addendum Addendum I was physically present for the roca portions of the service provided to patient by THE RESIDENT. I have reviewed the documentation, discussed the case with resident and agree with the resident's documentation except as noted. Also the patient's clinical case was discussed with the patient's nurse. This medical document was created using an electronic medical record system with computerized dictation system. Although this document has been carefully reviewed, there might still be some phonetic and typographical errors. These areas are purely typographical due to imperfections of the software programs, and do not reflect any compromise in the patient's medical care. Late signature. Date of Service: November 16, 2024 Billing Provider: CLEMENCIA SMITH MD Common Visit Codes: 49494-SDF/OBS DISCH DAY >30min YOAN COSTA RESIDENT November 16, 2024 11:35 CLEMENCIA SMITH MD November 17, 2024 10:18
[2024-11-16 12:04] VITALS: BP 102/65; PULSE 63; RESP 18; TEMP 97.7; O2SAT 94
--- NOTE | 2024-11-16 13:17 | DVHSR ---
APPROVED REPORT EXAM: Two-dimensional and M-mode echocardiogram with Doppler and color Doppler. Blood Pressure: 111/64 mmHg INDICATION Chest Pain recurrent RISK FACTORS Obesity: Height: 5'7, Weight: 229 DIMENSIONS LVDd5.7 (3.8-5.7cm)LA (2D)3.7 (1.9-4.0cm)Aortic Root3.5 (2.0-3.7cm) LVDs4.5 (2.5-4.0cm)LA (MM) (1.9-4.0cm)Aortic Cusp Exc2.0 (1.5-2.0cm) EF (%) 47.0 (55-70%)Rt. Atrium4.6 (1.9-4.0cm)Asc. Aorta cm IVSd0.9 (0.7-1.1cm)RV (D)4.8 (1.8-2.4cm) PWd1.1 (0.7-1.1cm) Mitral Valve MitralMitral Stenosis E wave0.81m/sMV Mean GR.mmHg A wave0.68m/sMV Peak GR.65mmHg E/A ratio1.22D MVAcm2 DECEL [id number] 1/2 [place] Aortic Valve Aortic ValveAortic Stenosis V10.96m/Johnathan Mean GR.4mmHg V21.18m/Johnathan Peak GR.6mmHg LVOT Diameter2.3 (1.8-2.4cm)Doppler AVA3.38cm2 Pulmonic Valve V21.02m/s Tricuspid Valve TR Velocity2.25m/s [id number] Conclusion lvef 50-55% by visual estimate low normal function normal rv function normal atria no severe valve abnormalities noted
== END 2024-11-16 12:40 | disposition home or self-care (01) | DRG 199 ==
LOC: ER 00:42 → OVERFLOW 04:27 → TELE-WESTW 21:05
PROVIDERS: ADMIT Internal Medicine; ATTEND Nurse Practitioner Adult Health
DX: I16.0 Hypertensive urgency (principal); I11.9 Hypertensive heart disease without heart failure; E66.01 Morbid (severe) obesity due to excess calories; Z68.35 Body mass index [BMI] 35.0-35.9, adult; E78.5 Hyperlipidemia, unspecified; I10 Essential (primary) hypertension; R07.89 Other chest pain
CPT/HCPCS: 36415; 71046; 80053; 80061; 80307; 81001; 82962; 83036; 83735; 83880; 84443; 84484; 85025; 85379; 85610; 85730; 93005; 93017; 93306; 96372; G0378